=== PATIENT | male | born 1950 | race Caucasian/White ===

== ENCOUNTER 2021-08-16 09:37 | Inpatient (IN) | payer MEDICARE, OTHER ==
[~2021-08-16] VITALS: Ht 188 cm; Wt 81.8 kg
[2021-08-16 10:11] LABS: BASOPHILS # (AUTO) 0.1 X10'3 (0-0.2); EOSINOPHILS # (AUTO) 0.1 X10'3 (0-0.9); HEMOGLOBIN 13.6 g/dl (14.0-17.9); MONOCYTES # (AUTO) 0.8 X10'3 (0-0.9)
[2021-08-16 10:13] LABS: BASOPHILS % (AUTO) 0.7 % (0-1); EOSINOPHILS % (AUTO) 1.5 % (0-6); HEMATOCRIT 41.1 % (42.0-52.0); LYMPHOCYTES # (AUTO) 0.9 X10'3 (1.1-4.8); LYMPHOCYTES % (AUTO) 11.4 % (21-51); MEAN CORPUSCULAR VOLUME 90.8 FL (78-98); MEAN PLATELET VOLUME 9.3 FL (7.4-10.4); MONOCYTES % (AUTO) 9.4 % (2-12); NEUTROPHILS # (AUTO) 6.4 X10'3 (1.8-7.7); PLATELET COUNT 268 X10'3 (140-440); RED BLOOD COUNT 4.53 X10'6 (4.70-6.10); WHITE BLOOD COUNT 8.2 X10'3 (4.5-11.0)
[2021-08-16 10:22] LABS: ALANINE AMINOTRANSFERASE 29 U/L (12-78); ALBUMIN/GLOBULIN RATIO 1.1 (1.1-1.5); ALKALINE PHOSPHATASE 60 IU/L (46-116); ANION GAP 9 (8-16); ASPARTATE AMINO TRANSFERASE 28 U/L (10-37); BILIRUBIN,TOTAL 0.4 MG/DL (0.1-1.0); BLOOD UREA NITROGEN 18 MG/DL (7-18); BUN/CREATININE RATIO 19.6 (5.4-32.0); CALCIUM 8.9 MG/DL (8.5-10.1); CHLORIDE 103 MMOL/L (99-107); CREATININE 0.92 MG/DL (0.60-1.10); GLUCOSE 94 MG/DL (70-104); POTASSIUM 4.1 MMOL/L (3.5-5.1); SODIUM 139 MMOL/L (135-145); TOTAL CARBON DIOXIDE 26.9 MMOL/L (24-32); TOTAL PROTEIN 7.8 G/DL (6.4-8.2); eGFR 81 ML/MIN
[2021-08-16] MEDS ORDERED: metoprolol tartrate 50mg tablet PO ONE (11:20)
[2021-08-16] MEDS ORDERED: aspirin 81mg tab.chew PO ONE (11:20)
[2021-08-16] MEDS ORDERED: nitroGLYCERIN 0.4mg SUBLingual tab SL PRN ×2 (11:20→14:05)
--- NOTE | 2021-08-16 12:20 | NUR ---
Patient denies chest pain at this time; did not administer nitro.
[2021-08-16] MEDS ORDERED: FLUT1DIS20 INH (12:35)
[2021-08-16] MEDS ORDERED: CLON0.252 PO (12:35)
[2021-08-16] MEDS ORDERED: ALBU18HF2 INH (12:35)
[2021-08-16] MEDS ORDERED: OMEP20CA15 PO (12:35)
[2021-08-16] MEDS ORDERED: iohexol 350MG/ML 100ml bottle IV ONE (14:03)
[2021-08-16] MEDS ORDERED: magnesium 4gm in 100ml NS 100 ML IV PRN (14:05)
[2021-08-16] MEDS ORDERED: clonazePAM 0.5mg tablet PO PRN (14:05)
[2021-08-16] MEDS ORDERED: potassium CL 10mEq/100ml bag 100 ML IV PRN (14:05)
[2021-08-16] MEDS ORDERED: regadenoson 0.4mg/5ml syringe IV PRN (14:05)
[2021-08-16] MEDS ORDERED: HYDROcodone/acetaminophen 5mg/325mg tablet PO PRN (14:05)
[2021-08-16] MEDS ORDERED: magnesium hydroxide 30ml (MOM) UD suspension PO PRN (14:05)
[2021-08-16] MEDS ORDERED: metoprolol tartrate 1mg/ml inj IV PRN (14:05)
[2021-08-16] MEDS ORDERED: morphine 2 MG/ML inj. syringe IV PRN ×2 (14:05)
[2021-08-16] MEDS ORDERED: HYDROcodone/acetaminophen 10/325mg tab PO PRN (14:05)
[2021-08-16] MEDS ORDERED: diphenhydrAMINE 25mg capsule PO PRN (14:05)
[2021-08-16] MEDS ORDERED: hydrALAZINE 20mg/ml inj. IV PRN (14:05)
[2021-08-16] MEDS ORDERED: ondansetron/PF 4mg/2ml inj IV PRN (14:05)
[2021-08-16] MEDS ORDERED: bisacodyl 10mg suppository rectal RC PRN (14:05)
[2021-08-16] MEDS ORDERED: potassium Cl 20 mEq SR tablet PO PRN ×2 (14:05)
[2021-08-16] MEDS ORDERED: aminophylline 500mg/20ml vial IV PRN (14:05)
[2021-08-16] MEDS ORDERED: hydrALAZINE 20mg/ml inj. IV ONE (14:05)
[2021-08-16] MEDS ORDERED: magnesium Cl slow-release 64mg tablet PO PRN (14:05)
[2021-08-16] MEDS ORDERED: albuterol 2.5 MG/3 ML nebule NEB PRN (14:05)
[2021-08-16] MEDS ORDERED: acetaminophen 325mg tablet PO PRN ×2 (14:05)
[2021-08-16] MEDS ORDERED: mag hydrox/Alum hydrox/simeth 30ml oral suspension PO PRN (14:05)
[2021-08-16] MEDS ORDERED: magnesium 2GM in 50ml NS 50 ML IV PRN (14:05)
[2021-08-16] MEDS ORDERED: acetaminophen 650mg rectal suppository RC PRN (14:05)
[2021-08-16 14:10] LABS: CLARITY,URINE CLEAR (Clear); COLOR,URINE YELLOW (Yellow); GLUCOSE, URINE NEGATIVE (Neg); KETONES,URINE TRACE mg/dl (Neg); LEUKOCYTE ESTERASE ,URINE NEGATIVE (Neg); NITRITES, URINE NEGATIVE (Neg); OCCULT BLOOD,URINE NEGATIVE (Neg); PH,URINE 5.5 (4.8-8.0); PROTEIN,URINE NEGATIVE (Neg); UROBILINOGEN,URINE 0.2 E.U/dL (0.2-1.0)
[2021-08-16 14:14] LABS: URINE AMPHETAMINE SCREEN NEGATIVE (Neg); URINE BARBITUATE SCREEN NEGATIVE (Neg); URINE BENZODIAZEPINES SCREEN NEGATIVE (Neg); URINE CANNABINOID SCREEN NEGATIVE (Neg); URINE COCAINE SCREEN NEGATIVE (Neg); URINE METHADONE SCREEN NEGATIVE (Neg); URINE OPIATE SCREEN NEGATIVE (Neg); URINE PHENCYCLIDINE SCREEN NEGATIVE (Neg)
[2021-08-16 14:16] LABS: UA COLLECTION TYPE NON-SPECIFIED
[2021-08-16] MEDS: normal saline 1000ml 1,000 ML IV SCH (14:54)
[2021-08-16] MEDS: atorvastatin 20mg tablet PO SCH (16:09)
[2021-08-16] MEDS: metoprolol tartrate 50mg tablet PO SCH ×2 (16:09→21:31)
[2021-08-16 16:20] LABS: HEMOGLOBIN A1C 5.5 % (4.5-6.2)
[2021-08-16 16:52] VITALS: BP 179/106
[2021-08-16 18:00] VITALS: BP 123/97
--- NOTE | 2021-08-16 18:03 | NUR ---
PT safe and stable, A&O x4, no complaints of chest pain, skin is intact. Pt can independently ambulate in room and is continent. Denies any pain. DARTED on admission.
[2021-08-16 18:05] VITALS: BP 133/80
--- NOTE | 2021-08-16 18:24 | NUR ---
Problems reprioritized. Patient report given to Annelise TAYLOR, questions answered & plan of care reviewed with .
--- NOTE | 2021-08-16 18:26 | NUR ---
Patient in room PCU 3013A. I have received report from CLAUDIA Gamboa/CLAUDIA Currie and had the opportunity to ask questions and assume patient care. Pt to be NPO, from [place], for [place] tomorrow.
[2021-08-16] MEDS: K and/or MAG REPLACEMENT MC SCH (20:00)
[2021-08-16] MEDS: budesonide 0.5mg/2ml UD nebule IH SCH (20:00)
[2021-08-16] MEDS: heparin, porcine 5000 units/ml vial SQ SCH (21:29)
[2021-08-16 21:30] VITALS: BP 129/88
[2021-08-16] MEDS: docusate sod 100mg capsule PO SCH (21:31)
[2021-08-16 22:00] VITALS: BP 128/77
[2021-08-17] VITALS (10 sets, daily range): BP systolic 120–160; BP diastolic 81–98
[2021-08-17] MEDS: normal saline 1000ml 1,000 ML IV SCH ×2 (03:25→08:31)
--- NOTE | 2021-08-17 06:13 | NUR ---
Problems reprioritized. Patient report given, questions answered & plan of care reviewed with CLAUDIA Gamboa/CLAUDIA Currie.
[2021-08-17] MEDS: K and/or MAG REPLACEMENT MC SCH (06:27)
[2021-08-17 06:35] LABS: BASOPHILS # (AUTO) 0.1 X10'3 (0-0.2); BASOPHILS % (AUTO) 0.8 % (0-1); EOSINOPHILS # (AUTO) 0.3 X10'3 (0-0.9); EOSINOPHILS % (AUTO) 3.8 % (0-6); HEMATOCRIT 42.6 % (42.0-52.0); HEMOGLOBIN 13.9 g/dl (14.0-17.9); LYMPHOCYTES # (AUTO) 1.4 X10'3 (1.1-4.8); LYMPHOCYTES % (AUTO) 17.4 % (21-51); MEAN CORPUSCULAR HEMOGLOBIN 30.1 PG (27.0-31.0); MEAN CORPUSCULAR HGB CONC 32.6 g/dL (33.0-36.5); MEAN CORPUSCULAR VOLUME 92.5 FL (78-98); MONOCYTES # (AUTO) 1.1 X10'3 (0-0.9); MONOCYTES % (AUTO) 14.3 % (2-12); NEUTROPHILS % (AUTO) 63.7 % (42-75); PLATELET COUNT 257 X10'3 (140-440); RED BLOOD COUNT 4.61 X10'6 (4.70-6.10); RED CELL DISTRIBUTION WIDTH 14.7 % (11.5-14.5); WHITE BLOOD COUNT 7.8 X10'3 (4.5-11.0)
[2021-08-17 06:56] LABS: ALANINE AMINOTRANSFERASE 28 U/L (12-78); ALBUMIN 3.5 G/DL (3.4-5.0); ALKALINE PHOSPHATASE 48 IU/L (46-116); ANION GAP 7 (8-16); ASPARTATE AMINO TRANSFERASE 27 U/L (10-37); BILIRUBIN,TOTAL 0.4 MG/DL (0.1-1.0); BLOOD UREA NITROGEN 24 MG/DL (7-18); BUN/CREATININE RATIO 22.6 (5.4-32.0); CALCIUM 9.1 MG/DL (8.5-10.1); CHLORIDE 106 MMOL/L (99-107); CHOL/HDL RATIO 2.1 (0.00-4.99); CHOLESTEROL 202 MG/DL (0-200); CREATININE 1.06 MG/DL (0.60-1.10); GLUCOSE 88 MG/DL (70-104); HDL CHOLESTEROL 97 MG/DL (35-60); LDL CHOLESTEROL 84 MG/DL (50-100); MAGNESIUM 1.9 MG/DL (1.5-2.4); POTASSIUM 4.3 MMOL/L (3.5-5.1); SODIUM 142 MMOL/L (135-145); TOTAL CARBON DIOXIDE 29.2 MMOL/L (24-32); TOTAL PROTEIN 7.1 G/DL (6.4-8.2); TRIGLYCERIDES 89 MG/DL (20-135); eGFR 69 ML/MIN
[2021-08-17] MEDS: budesonide 0.5mg/2ml UD nebule IH SCH (07:54)
[2021-08-17] MEDS ORDERED: pantoprazole 40mg Tablet.DR PO SCH (08:00)
[2021-08-17] MEDS: docusate sod 100mg capsule PO SCH (08:00)
[2021-08-17] MEDS ORDERED: aspirin 81mg, enteric-coated 1 TAB TABLET.DR PO SCH (08:00)
[2021-08-17] MEDS: atorvastatin 20mg tablet PO SCH (09:27)
[2021-08-17] MEDS: heparin, porcine 5000 units/ml vial SQ SCH (09:28)
[2021-08-17] MEDS: metoprolol tartrate 50mg tablet PO SCH (09:29)
[2021-08-17] MEDS ORDERED: METO50TA16 PO (10:24)
[2021-08-17] MEDS ORDERED: ATOR10TA PO (10:24)
[2021-08-17] MEDS ORDERED: ASPI-1071 PO (10:24)
--- NOTE | 2021-08-17 11:45 | NUR ---
Discharge Note Pt. received discharge instructions with no further questions; Pt IV removed with catheter intact; Pt. tele cleaned and returned to telecommunications facility examiner, [facility]
== END 2021-08-17 11:45 | disposition home or self-care (01) | DRG 392 ==
LOC: ER 09:38 → ED HOLD 14:07 → PCU 3S 16:38
PROVIDERS: ADMIT Family Medicine; ATTEND Family Medicine
PROC: B32T1ZZ Computerized Tomography (CT Scan) of Left Pulmonary Artery using Low Osmolar Contrast (ICD-10-PCS; 2021-08-16)
PROC: B3201ZZ Computerized Tomography (CT Scan) of Thoracic Aorta using Low Osmolar Contrast (ICD-10-PCS; 2021-08-16)
PROC: B32S1ZZ Computerized Tomography (CT Scan) of Right Pulmonary Artery using Low Osmolar Contrast (ICD-10-PCS; 2021-08-16)
PROC: 4A02XM4 Measurement of Cardiac Total Activity, External Approach (ICD-10-PCS; principal; 2021-08-17)
PROC: 3E033HZ Introduction of Radioactive Substance into Peripheral Vein, Percutaneous Approach (ICD-10-PCS; 2021-08-17)
DX: K21.9 Gastro-esophageal reflux disease without esophagitis (principal); Z20.822 Contact with and (suspected) exposure to COVID-19; I16.0 Hypertensive urgency; I20.9 Angina pectoris, unspecified; J45.909 Unspecified asthma, uncomplicated; D64.9 Anemia, unspecified; I10 Essential (primary) hypertension; K44.9 Diaphragmatic hernia without obstruction or gangrene; Z82.49 Family history of ischemic heart disease and other diseases of the circulatory system; Z87.891 Personal history of nicotine dependence
CPT/HCPCS: 36415; 71045; 71275; 78452; 80053; 80061; 80305; 81003; 83036; 83735; 83880; 84484; 85025; 87635; 93005; 93017; 93306; 94760; 99285; A9500; C9803; G0378; J0360; J1644; J2785; J7030; Q9967